=== PATIENT | female | born 1945 | race Caucasian/White ===

== ENCOUNTER 2019-08-06 11:41 | Day surgery (SDC) | payer MEDICARE ==
[~2019-08-06] VITALS: Ht 170.2 cm; Wt 66.8 kg
[~2019-08-06 11:41] MED LIST: ESTR2 PO; HYDR1TAB94 PO; ONDA4 PO; WARF4 PO
--- NOTE | 2019-08-06 12:47 | NUR ---
08/06/19 1247 [address] [place] 2 IV MISS IN RW BY KIM VALVE 1 GOOD IV IN RH BY KIM PT TOW
== END 2019-08-06 14:12 | disposition home or self-care (01) ==
LOC: ORSCSDS 11:41
PROVIDERS: Internal Medicine Gastroenterology
PROC: 0DBH8ZX Excision of Cecum, Via Natural or Artificial Opening Endoscopic, Diagnostic (ICD-10-PCS; principal; 2019-08-06 13:30)
PROC: 0DBM8ZX Excision of Descending Colon, Via Natural or Artificial Opening Endoscopic, Diagnostic (ICD-10-PCS; principal; 2019-08-06 13:30)
PROC: 0DBK8ZX Excision of Ascending Colon, Via Natural or Artificial Opening Endoscopic, Diagnostic (ICD-10-PCS; principal; 2019-08-06 13:30)
DX: Z12.11 Encounter for screening for malignant neoplasm of colon (principal); D12.0 Benign neoplasm of cecum; D12.2 Benign neoplasm of ascending colon; D12.4 Benign neoplasm of descending colon; K57.30 Diverticulosis of large intestine without perforation or abscess without bleeding; K64.8 Other hemorrhoids; Z80.0 Family history of malignant neoplasm of digestive organs; J45.909 Unspecified asthma, uncomplicated; F32.9 Major depressive disorder, single episode, unspecified; Z79.899 Other long term (current) drug therapy
CPT/HCPCS: 88305; J2704; J7120

== ENCOUNTER 2023-03-29 07:14 | Day surgery (SDC) | payer MEDICARE ==
[~2023-03-29] VITALS: Ht 157.5 cm; Wt 65.3 kg
[~2023-03-29 07:14] MED LIST changes: +TRAZ50 PO
[2023-03-29 10:02] VITALS: BP 112/62
== END 2023-03-29 10:05 | disposition home or self-care (01) ==
LOC: ORSCSDS 07:14
PROVIDERS: Internal Medicine Gastroenterology
PROC: 0DBL8ZX Excision of Transverse Colon, Via Natural or Artificial Opening Endoscopic, Diagnostic (ICD-10-PCS; principal; 2023-03-29 08:45)
PROC: 0DBH8ZX Excision of Cecum, Via Natural or Artificial Opening Endoscopic, Diagnostic (ICD-10-PCS; principal; 2023-03-29 08:45)
PROC: 0DBC8ZX Excision of Ileocecal Valve, Via Natural or Artificial Opening Endoscopic, Diagnostic (ICD-10-PCS; principal; 2023-03-29 08:45)
DX: Z12.11 Encounter for screening for malignant neoplasm of colon (principal); Z86.010 Personal history of colon polyps; Z80.0 Family history of malignant neoplasm of digestive organs; D12.0 Benign neoplasm of cecum; D12.3 Benign neoplasm of transverse colon; K57.30 Diverticulosis of large intestine without perforation or abscess without bleeding; K64.8 Other hemorrhoids; J45.909 Unspecified asthma, uncomplicated; Z79.899 Other long term (current) drug therapy
CPT/HCPCS: 88305; J2250; J2704; J7120

== ENCOUNTER → 2023-04-20 | Outpatient (CLI) | payer MEDICARE | LOC: LAB 17:37 → LAB SHORT 17:37 | DX: N39.0 Urinary tract infection, site not specified (principal) | CPT/HCPCS: 87077; 87086; 87186 ==

== ENCOUNTER 2023-05-27 19:10 | Emergency (ER) | payer MEDICARE ==
[~2023-05-27] VITALS: Ht 157.5 cm; Wt 62.6 kg
[2023-05-28 00:50] VITALS: BP 143/69
== END 2023-05-28 00:53 | disposition home or self-care (01) ==
LOC: ER 19:10
DX: R51.9 Headache, unspecified (principal); R25.8 Other abnormal involuntary movements; T50.995A Adverse effect of other drugs, medicaments and biological substances, initial encounter; Z88.8 Allergy status to other drugs, medicaments and biological substances; Z88.5 Allergy status to narcotic agent; Z79.899 Other long term (current) drug therapy
CPT/HCPCS: 96361; 96374; 96375; 99283-25; J0515; J0780; J1200; J1885; J2060; J3360; J7030

== ENCOUNTER 2023-06-17 15:12 | Emergency (ER) | payer MEDICARE ==
[~2023-06-17] VITALS: Ht 157.5 cm; Wt 62.6 kg
[2023-06-17 15:46] VITALS: BP 152/85
[2023-06-17] MEDS ORDERED: KAPSPARGO SPRIN50 MG PO (16:21)
[2023-06-17] MEDS ORDERED: Amoxicillin875 MG PO (16:22)
[2023-06-17] MEDS ORDERED: LOSA50 PO (16:22)
[2023-06-17] MEDS ORDERED: TRANSDERM-SCOP1 EA13 TD (16:23)
[2023-06-17] MEDS ORDERED: DIAZ5 PO (16:23)
[2023-06-17] MEDS ORDERED: ONDA4ODT MM (16:23)
== END 2023-06-17 15:50 | disposition home or self-care (01) ==
LOC: ER 15:12
DX: I10 Essential (primary) hypertension (principal); Z88.5 Allergy status to narcotic agent; Z88.8 Allergy status to other drugs, medicaments and biological substances
CPT/HCPCS: 99283